=== PATIENT | male | born 1985 ===

== ENCOUNTER 2022-10-20 12:44 | Outpatient (REF) | payer MEDICARE, MEDICAID, SELFPAY | END 2022-10-20 12:45 | disposition home or self-care (01) | LOC: HO.SH 12:44 | PROVIDERS: Visit Provider Internal Medicine | DX: Z01.118 Encounter for examination of ears and hearing with other abnormal findings (principal); F84.0 Autistic disorder | CPT/HCPCS: 92557; 92567 ==